=== PATIENT | female | born 1955 | race Caucasian/White ===

== ENCOUNTER → 2021-04-21 | Outpatient (CLI) | payer BC | LOC: LAB SHORT 14:23 | DX: D48.5 Neoplasm of uncertain behavior of skin (principal) | CPT/HCPCS: 88305 ==

== ENCOUNTER 2024-04-20 22:29 | Emergency (ER) | payer MEDICARE ==
[~2024-04-20] VITALS: Ht 157.5 cm; Wt 75.8 kg
[2024-04-20 22:42] VITALS: BP 151/91
[2024-04-21] MEDS ORDERED: Rabies Immune Globulin/Pf 300 Unit/ML 1ML Vial IM ONE (00:41)
[2024-04-21] MEDS ORDERED: Rabies Vaccine (Pcec)/Pf 1 mL 2.5 Unit Kit IM ONE (00:41)
== END 2024-04-21 02:04 | disposition home or self-care (01) ==
LOC: ER 22:29
DX: Z29.14 Encounter for prophylactic rabies immune globulin (principal); Z88.5 Allergy status to narcotic agent
CPT/HCPCS: 90375; 90471; 96372; 99283

== ENCOUNTER 2024-04-23 16:26 | Emergency (ER) | payer MEDICARE ==
[~2024-04-23] VITALS: Ht 157.5 cm; Wt 74.8 kg
[2024-04-23 16:37] VITALS: BP 150/77
[2024-04-23] MEDS ORDERED: Rabies Vaccine (Pcec)/Pf 1 mL 2.5 Unit Kit IM ONE (16:40)
== END 2024-04-23 17:14 | disposition home or self-care (01) ==
LOC: ER 16:26
DX: Z23 Encounter for immunization (principal); Z20.3 Contact with and (suspected) exposure to rabies; Z87.891 Personal history of nicotine dependence
CPT/HCPCS: 90471; 99282

== ENCOUNTER 2024-04-27 16:34 | Emergency (ER) | payer MEDICARE ==
[~2024-04-27] VITALS: Ht 157.5 cm; Wt 75.8 kg
[2024-04-27 16:45] VITALS: BP 135/76
[2024-04-27] MEDS ORDERED: Rabies Vaccine (Pcec)/Pf 1 mL 2.5 Unit Kit IM ONE (16:45)
== END 2024-04-27 17:14 | disposition home or self-care (01) ==
LOC: ER 16:34
DX: Z23 Encounter for immunization (principal); Z87.891 Personal history of nicotine dependence; Z88.5 Allergy status to narcotic agent
CPT/HCPCS: 90471; 99281-25

== ENCOUNTER 2024-05-04 15:36 | Emergency (ER) | payer MEDICARE ==
[~2024-05-04] VITALS: Ht 157.5 cm; Wt 75.8 kg
[2024-05-04 16:19] VITALS: BP 135/72
[2024-05-04] MEDS ORDERED: Rabies Vaccine (Pcec)/Pf 1 mL 2.5 Unit Kit IM ONE (16:25)
== END 2024-05-04 16:47 | disposition home or self-care (01) ==
LOC: ER 15:36
DX: Z29.14 Encounter for prophylactic rabies immune globulin (principal); Z87.891 Personal history of nicotine dependence
CPT/HCPCS: 90471; 99281-25

== ENCOUNTER 2024-06-08 13:37 | Observation (INO) | payer MEDICARE ==
[~2024-06-08] VITALS: Ht 157.5 cm; Wt 75.6 kg
[2024-06-08 14:28] LABS: BASOPHILS ABSOLUTE AUTO 0.04 K/mm3 (0.00-0.23); BASOPHILS PERCENT AUTO 1 % (0-2); EOSINOPHILS ABSOLUTE AUTO 0.33 K/mm3 (0.00-0.68); EOSINOPHILS PERCENT AUTO 5 % (0-6); Hematocrit 43.4 % (33.0-51.0); Hemoglobin 14.5 g/dL (11.5-16.0); IMMATURE GRAN ABSOLUTE AUTO 0.01 K/mm3 (0.00-0.10); IMMATURE GRAN PERCENT AUTO 0 % (0-1); LYMPHOCYTES ABSOLUTE AUTO 2.03 K/mm3 (0.84-5.20); LYMPHOCYTES PERCENT AUTO 32 % (21-46); MONOCYTES ABSOLUTE AUTO 0.48 K/mm3 (0.16-1.47); MONOCYTES PERCENT AUTO 8 % (4-13); Mean Corpuscular HGB 27.8 pg (26.0-34.0); Mean Corpuscular HGB Conc 33.4 g/dL (31.5-36.5); Mean Corpuscular Volume 83 fL (80-100); Mean Platelet Volume 9.6 fL (9.1-12.4); NEUTROPHILS ABSOLUTE AUTO 3.48 K/mm3 (1.96-9.15); NEUTROPHILS PERCENT AUTO 55 % (41-73); Platelet Count 259 K/mm3 (150-400); RDW Standard Deviation 39.5 fL (35.1-46.3); Red Blood Cell Count 5.21 M/mm3 (3.80-5.20); White Blood Cell Count 6.37 K/mm3 (4.00-11.30)
[2024-06-08 15:08] LABS: Albumin, Blood 4.1 g/dL (3.4-5.0); Albumin/Globulin Ratio 1.1 (0.8-1.8); Bilirubin, Total 0.5 mg/dL (0.1-1.0); Bun/Creatinine Ratio 30.3 (12.0-20.0); Calcium, Blood 9.5 mg/dL (8.5-10.1); Creatinine, Blood 0.76 mg/dL (0.40-1.00); Globulin, Blood 3.8 g/dL (2.2-4.0); Potassium, Blood 3.7 mmol/L (3.5-5.5); Total Protein, Blood 7.9 g/dL (6.4-8.2)
[2024-06-08] MEDS ORDERED: FentaNYL Citrate 50 MCG/ML 2 ML Injection IV PRN (16:30)
[2024-06-08] MEDS ORDERED: NS 1,000 ML IV ONE ×2 (16:30→16:49)
[2024-06-08] MEDS ORDERED: Acetaminophen 325 MG TABLET PO PRN (16:30)
[2024-06-08] MEDS ORDERED: Ondansetron HCl 2 MG / ML 2ML Vial IV PRN (16:35)
[2024-06-08] MEDS ORDERED: FLU VACC TS2024-25(6MOS UP)/PF 45 MCG/0.5 ML SYRINGE IM PRN (16:35)
[2024-06-08] MEDS ORDERED: Mag Hydrox/Al Hydrox/Simeth 72 ML,Lidocaine 2% Viscous Soln 36 ML,Atropine/Scopalam/Hyo... PO PRN (16:50)
[2024-06-08] MEDS ORDERED: Enoxaparin 40 MG/0.4 ML SYR SC SCH (17:00)
--- NOTE | 2024-06-08 17:27 | NUR ---
CALL TO ER TO RECIEVE REPORT, RN WILL CALL BACK WHEN AVAILABLE.
[2024-06-08 18:00] VITALS: BP 154/82
[2024-06-08] MEDS ORDERED: THERA-D2000 UNIT PO (18:38)
--- NOTE | 2024-06-08 18:48 | NUR ---
PATIENT RECIEVED TO UNIT AT 1805.
[2024-06-08] MEDS ORDERED: Ketorolac Tromethamine 30mg Vial IV PRN (21:10)
[2024-06-09 00:24] VITALS: BP 116/65
[2024-06-09 01:36] LABS: BASOPHILS ABSOLUTE AUTO 0.04 K/mm3 (0.00-0.23); BASOPHILS PERCENT AUTO 1 % (0-2); EOSINOPHILS ABSOLUTE AUTO 0.33 K/mm3 (0.00-0.68); EOSINOPHILS PERCENT AUTO 5 % (0-6); Hematocrit 42.5 % (33.0-51.0); IMMATURE GRAN ABSOLUTE AUTO 0.01 K/mm3 (0.00-0.10); IMMATURE GRAN PERCENT AUTO 0 % (0-1); LYMPHOCYTES ABSOLUTE AUTO 2.38 K/mm3 (0.84-5.20); LYMPHOCYTES PERCENT AUTO 35 % (21-46); MONOCYTES ABSOLUTE AUTO 0.49 K/mm3 (0.16-1.47); MONOCYTES PERCENT AUTO 7 % (4-13); Mean Corpuscular HGB 28.1 pg (26.0-34.0); Mean Corpuscular HGB Conc 32.9 g/dL (31.5-36.5); Mean Corpuscular Volume 85 fL (80-100); NEUTROPHILS ABSOLUTE AUTO 3.56 K/mm3 (1.96-9.15); NEUTROPHILS PERCENT AUTO 52 % (41-73); Platelet Count 208 K/mm3 (150-400); RDW Coefficient Variation 13.1 % (11.7-14.2); RDW Standard Deviation 39.7 fL (35.1-46.3); Red Blood Cell Count 4.98 M/mm3 (3.80-5.20); White Blood Cell Count 6.81 K/mm3 (4.00-11.30)
[2024-06-09 01:58] LABS: Albumin, Blood 3.7 g/dL (3.4-5.0); Bilirubin, Total 0.3 mg/dL (0.1-1.0); Bun/Creatinine Ratio 22.6 (12.0-20.0); Calcium, Blood 9.3 mg/dL (8.5-10.1); Creatinine, Blood 0.84 mg/dL (0.40-1.00); Globulin, Blood 3.6 g/dL (2.2-4.0); Total Protein, Blood 7.3 g/dL (6.4-8.2)
[2024-06-09 04:03] LABS: Potassium, Blood 3.9 mmol/L (3.5-5.5)
[2024-06-09 04:19] VITALS: BP 101/69
--- NOTE | 2024-06-09 06:12 | NUR ---
Shift Summary Pt admitted to this unit from ED for chest pain. Dr. Ferrer saw this pt early in the night and said he thinks her shoulder/arm pain may be d/t stenosis and he ordered an MRI. MRI screening form has been completed and faxed to imaging, the screening form is currently in pt's paper chart. Pt stated only minor pain t/o the night, declined pain medication. She is on tele running SR 60-78, no events. She is AOx4, independent in the room. Troponin labs all negative. She is rcving NS@75 x 1L as ordered.
[2024-06-09 07:29] VITALS: BP 117/77
[2024-06-09] MEDS ORDERED: Cyclobenzaprine HCl 10 MG Tab PO PRN (09:30)
[2024-06-09] MEDS ORDERED: Lidocaine 4% 1 Patch TOP SCH (10:30)
[2024-06-09 14:50] VITALS: BP 131/73
[2024-06-09 16:58] VITALS: BP 110/57
--- NOTE | 2024-06-09 17:14 | NUR ---
SHIFT SUMMARY PT A/Ox4, FULL CODE, INDEPENDENT IN ROOM. VSS. TELE MONITOR IN PLACE WITH NO EVENTS. SR @ 68. PT CONTINUES TO REPORT PAIN TO L SHOULDER, L ARM, AND BACK - TREATED PER EMAR. MRI TO BE COMPLETED TODAY - MRI MACHINE NOT WORKING AT THIS TIME. PT WISHING TO STAY IN HOPES TO GET MRI COMPLETED DUE TO OUTPATIENT IMAGINING TAKING SEVERAL WEEKS TO GET IN PER HER PCP WHO SHE CALLED TODAY. PT CURRENTLY RESTING IN HOSPITAL BED WITH BED IN LOWEST POSITION AND CALL LIGHT WITHIN REACH. AT BEDSIDE. PT USES CALL LIGHT APPROPIRATELY.
--- NOTE | 2024-06-09 19:02 | NUR ---
RECEIVED REPORT FROM DAY SHIFT RN. WILL CONTINUE TO PROVIDE CARE. CALL LT IN REACH.
[2024-06-09 19:18] VITALS: BP 124/74
[2024-06-10 00:13] VITALS: BP 120/68
[2024-06-10 04:11] VITALS: BP 109/70
--- NOTE | 2024-06-10 05:01 | NUR ---
PT A&OX4 PLEASANT ANSWERS APPROPERIATELY, C/O CONTINUED LEFT SHOULDER PAIN WITH MOVEMENT REPORTED POSSIBLE STENOSIS WILL CONFIRM WITH MRI, PT WAS QUIET THROUGHOUT NIGHT RESTING PEACEFULLY REQUESTED FLEXRIL @0500 FOR MODERATE DISCOMFORT, PT REMIANS ON TELE SR 68 WITH NO EVENTS, PT SITTING UP IN BED, WILL CONTINUE TO MONITOR
--- NOTE | 2024-06-10 05:19 | NUR ---
ASSUMED CARE OF PT. PT RESTING. WILL CONTINUE TO PROVIDE CARE.
[2024-06-10 07:48] VITALS: BP 128/69
[2024-06-10] MEDS ORDERED: Lidocaine 4% 1 Patch TOP SCH (09:00)
[2024-06-10] MEDS ORDERED: Menthol 1 EA Adhesive Patch TOP PRN (09:45)
[2024-06-10] MEDS ORDERED: Capsaicin 0.025% Cream TOP SCH ×2 (10:20→13:00)
[2024-06-10] MEDS ORDERED: Acetaminophen325 M1 PO (13:39)
[2024-06-10] MEDS ORDERED: Cyclobenzaprine5 MG PO (13:40)
--- NOTE | 2024-06-10 14:13 | NUR ---
DISCHARGE SUMMARY PT DISCHARGED AT APPROX 1410 TO HOME. NEEDED RX FAXED TO [facility]. IV REMOVED, SITE APPEARS WNL, CATHETER TIP IN PLACE. DISCHARGE PACKET REVIEWED AND PT WHEELED DOWN TO PRIVATE VEHICLE BY RN. MRI COMPLETED, PT HAS APPOINTMENT WITH PCP TOMORROW FOR FOLLOW UP.
== END 2024-06-10 14:04 | disposition home or self-care (01) ==
LOC: ER 13:37 → MEDS 16:22 → ERHOLD 16:22 → MEDS 17:59
PROVIDERS: Emergency Medicine; ADMIT Internal Medicine
DX: M48.02 Spinal stenosis, cervical region (principal); M54.12 Radiculopathy, cervical region; R07.89 Other chest pain; Z88.5 Allergy status to narcotic agent; K44.9 Diaphragmatic hernia without obstruction or gangrene
CPT/HCPCS: 36415; 71045; 72141; 72146; 80053; 83880; 84484; 85025; 93005; 93010; 96372; 96374; 99285-25; A9270; G0378; J1650; J1885; J7030